=== PATIENT | female | born 1940 | race Caucasian/White ===

== ENCOUNTER 2024-02-21 13:17 | Day surgery (SDC) | payer MEDICARE, SELFPAY ==
[2024-02-14 13:54] VITALS: BMI 40.6
[2024-02-21] VITALS (13 sets, daily range): BP systolic 106–164; BP diastolic 45–96; PULSE 60–80; RESP 10–22; TEMP 36–36.5; O2SAT 90–98; BMI 42.0
--- NOTE | 2024-02-21 06:00 | DI.RAD.S_ITS ---
PROCEDURE: XR SHOULDER RT 1V INDICATIONS: TSA TECHNIQUE: 1 views of the shoulder were acquired. COMPARISON: None. FINDINGS: Bones: Right shoulder arthroplasty placement, with normal alignment. Soft tissues: No suspicious soft tissue calcifications. Subcutaneous gas and swelling, as expected. IMPRESSION: Well-aligned, intact right shoulder arthroplasty without hardware complication. Dictated by: Hussein Marinelli M.D. on 02/22/2024 at 9:14 Approved by: Hussein Marinelli M.D. on 02/22/2024 at 9:15
[2024-02-21] MEDS: LACTATED RINGERS 1,000 ML 42 ML IV ×2 (13:45→17:13)
[2024-02-21] MEDS: ACETAMINOPHEN 325 MG TABLET 975 MG PO (13:54)
--- NOTE | 2024-02-21 14:51 | PM.HP.1 ---
History of Present Illness History of Present Illness Date Patient Seen: 02/21/24 Time Patient Seen: 14:52 Chief complaint: Right Total Shoulder Arthroplasty - Reverse Narrative: Patient is a pleasant 83-year-old female here today for right reverse total shoulder arthroplasty. She has not had any changes in her symptoms since I last saw her. She states that the pain is still quite significant and prevents her from sleeping or doing activities of daily living. No recent nausea, vomiting, diarrhea, fevers, chills or any other constitutional symptoms. No other complaints at this time. [facility] Medical History History of COVID-19 (~2021) History of esophageal dilatation Hearing impaired Anxiety ADHD Pre-diabetes RODRIGO treated with BiPAP Chronic kidney disease, stage 3b SAH (subarachnoid hemorrhage) (10/24/23) Seasonal allergies HLD (hyperlipidemia) HTN (hypertension) Heart murmur Arrhythmia Acid reflux COPD (chronic obstructive pulmonary disease) Atrial fibrillation Aortic stenosis Nonsustained supraventricular tachycardia Pulmonary emboli (2014) History of transcatheter aortic valve replacement (TAVR) (2019) Surgical History History of open heart surgery (2019) History of arthroscopy of right shoulder History of total left knee replacement History of total right knee replacement Hx of bilateral cataract extraction Hx of tonsillectomy History of esophagogastroduodenoscopy (EGD) Hx of colonoscopy Hx of colectomy Hx of cholecystectomy Hx of appendectomy Hx of adenoidectomy Social History household members: significant other Smoking Status: Never smoker alcohol intake: former Meds Home Medications and Allergies Home Medications Medication Instructions Recorded Confirmed Type albuterol sulfate 90 mcg/actuation 2 puff inhalation Q4-6H PRN 01/18/24 02/21/24 History aerosol inhaler Shortness Of Breath alendronate 70 mg tablet 70 mg PO QWEEK 01/18/24 02/21/24 History aspirin 81 mg tablet,delayed 81 mg PO DAILY 01/18/24 02/21/24 History release azelastine 137 mcg (0.1 %) nasal 1 spray intranasal BID 01/18/24 02/21/24 History spray aerosol cetirizine 10 mg tablet 10 mg PO DAILY 01/18/24 02/21/24 History docusate sodium 100 mg capsule 100 mg PO DAILY 01/18/24 02/21/24 History (Colace) fluticasone 250 mcg-salmeterol 50 1 inh inhalation BID PRN Seasonal 01/18/24 02/21/24 History mcg/dose blistr powdr for allergies inhalation (Advair Diskus) furosemide 40 mg tablet 40 mg PO QAM 01/18/24 02/21/24 History hydrocodone 7.5 mg-acetaminophen 1 tab PO TID 01/18/24 02/21/24 History 325 mg tablet lisinopril 10 mg tablet 10 mg PO BEDTIME 01/18/24 02/21/24 History metoprolol tartrate 50 mg tablet 50 mg PO BID 01/18/24 02/21/24 History montelukast 10 mg tablet 10 mg PO BEDTIME 01/18/24 02/21/24 History oxybutynin chloride 5 mg tablet 5 mg PO BEDTIME 01/18/24 02/21/24 History pantoprazole 20 mg tablet,delayed 20 mg PO DAILY 01/18/24 02/21/24 History release (Protonix) pramipexole 0.125 mg tablet 0.125 mg PO BEDTIME 01/18/24 02/21/24 History rosuvastatin 10 mg tablet 10 mg PO BEDTIME 01/18/24 02/21/24 History trazodone 100 mg tablet 100 mg PO BEDTIME 01/18/24 02/21/24 History venlafaxine 150 mg 150 mg PO QAM 01/18/24 02/21/24 History capsule,extended release 24 hr Allergies Allergy/AdvReac Type Severity Reaction Status Date / Time adhesive tape Allergy Intermediate Blister Verified 02/21/24 13:47 citalopram Allergy Hives, Verified 02/21/24 13:47 vomiting diclofenac Allergy Affected Verified 02/21/24 13:47 kidneys doxycycline Allergy ITCHING Verified 02/21/24 13:47 Sulfa (Sulfonamide Allergy ITCHING Verified 02/21/24 13:47 Antibiotics) hydromorphone [From Dilaudid] AdvReac Severe Hallucinati Verified 02/21/24 13:47 ng celecoxib AdvReac Affected Verified 02/21/24 13:47 kidneys niacin AdvReac I got too Verified 02/21/24 13:47 hot piroxicam AdvReac Hypertensio Verified 02/21/24 13:47 n Review of Systems Review of Systems ROS: Yes All systems reviewed with the patient and are negative except as otherwise documented Exam Vital Signs (past 8 hours): - 02/21/24 13:57 Temperature 97.7 F Pulse Rate 60 Respiratory Rate 18 Blood Pressure 164/67 H Pulse Oximetry 96 Oxygen Delivery Method Room Air Oxygen Delivery Method Room Air Narrative Exam Narrative: HEENT: Head atraumatic eyes anicteric moist mucous membranes Cardiovascular: Palpable peripheral pulses extremities are warm and well perfused Respiratory: Breathing comfortably on room air Psychiatric: Appropriate mood and affect Neuro: No acute deficits Musculoskeletal: Limited range of motion of the right upper extremity as noted in the previous clinic note. Sensation intact to light touch median, radial, ulnar, axillary nerve distributions. Assessment & Plan Assessment & Plan narrative: Assessment: 83-year-old female with right rotator cuff arthropathy here for reverse total shoulder arthroplasty Plan: As discussed previously plan is to go forward with a reverse total shoulder arthroplasty. Risks and benefits of surgery were discussed again including the risk of infection, damage to internal structures, bleeding, nerve injury, instability, need for revision surgery, blood clots, anesthesia and . No guarantees were made regarding outcomes. Patient expressed understanding and accepted these risks and wished to go forward with surgery and consent was signed.
--- NOTE | 2024-02-21 15:12 | SUR.OPER ---
Beach chair with SKYTRON shoulder positioner. Lower body on padded OR bed. Head in foam padded head cradle, secured with straps. Non-operative arm secured <90 degrees abduction. Pillow under knees. Safety belt at thigh. Cloth tape over blanket over lower legs.
[2024-02-21] MEDS: CEFAZOLIN 2 GM/100 ML PREMIX 100 ML IV (16:00)
[2024-02-21] MEDS: BUPIVACAINE 0.25% (PF) 30 ML, EPINEPHrine 0.15 MG INJ (16:06)
--- NOTE | 2024-02-21 18:03 | PM.OP.1 ---
Operative Date/Time/Diagnoses Date of procedure: 02/21/24 Time of procedure: 18:03 Pre-op diagnosis: Right glenohumeral arthritis Post-op diagnosis: same Procedure & Clinicians Procedure: Right reverse total shoulder arthroplasty Same procedure as scheduled: Yes Indications: Indications: This is a 83-year-old female who has glenohumeral arthritis. Symptoms have been present for years, insidious onset. Patient has failed a reasonable attempt at conservative therapy. After extensive discussion in clinic, they wished to go forward with surgery. Risks and benefits were described including the risk of infection, bleeding, damage to internal structures including nerves. We also discussed the risk of failure of surgery and the need for revision surgery as well as the risk of anesthesia. The patient expressed understanding with these risks and wished to go forward with surgery. Surgeon: Reji Inman Carbon Brushes Assembler: Loli Gaines Operative Notes Findings: Findings: Osteoarthritis of the glenoid and humeral head as well as a defient rotator cuff as noted on preoperative imaging and under direct visualization Closure Type: primary Specimen(s): none sent Prosthetic devices, grafts, tissues, transplants, or devices: Tornier implants Base plate: standard 25 mm, Glenosphere: 33 mm (+3 offset) Stem: Perform 2+ Poly: +0 concentric Estimated Blood Loss (mL): 200 Procedure in detail: Patient was seen in the preoperative holding unit. The correct right shoulder was identified and marked with my initials. Again we discussed the risks and benefits of surgery and they wished to go forward with surgery. The patient was brought back to the operating room and placed supine on the operating table. Smooth endotracheal intubation was performed by anesthesia. All prominences were padded and they were placed into the beach chair position. Intravenous antibiotics were given. The right shoulder was then prepped with the standard sterile preparation and draping. A time-out was then performed in my initials were again identified on the correct shoulder. 1 g of IV tranexamic acid was given. A standard deltopectoral incision was made. Skin flaps were made. The cephalic vein was identified and retracted laterally. This was protected throughout the remainder of the case. Sharp dissection was made along the deltoid, subacromial and subcoracoid space to release adhesions. The conjoined tendon was identified and the axillary nerve was palpated and continuous using the tug test. It was protected throughout the remainder of the case. A brown retractor was placed underneath the deltoid muscle and a darach retractor underneath the conjoint tendon. The subscapularis muscle was ntoed to be intact but thin. The anterior circumflex artery and associated veins on the lower border of the subscapularis were identified and tied off using 0-Vicryl. The biceps tendon was identified in the bicipital groove. This was released from its sheath, and taken from its origin on the glenoid and tied into the pectoralis tendon for a solid tenodesis. We then began a subscapularis peel. The subscapularis was tagged with an Ethibond suture. A 360 degree circumferential release of the subscapularis was performed with protection of the axillary nerve. The coracohumeral ligament was released at the base of the coracoid. The shoulder was then dislocated. Osteophytes were removed using combination of rongeur and osteotome. The rotator cuff was noted to be partially insufficient. An intramedullary guide was used set at version of 20?. Using an oscillating saw a conservative humeral head cut was made. Impaction reamers were reamed up to a size 2 stem with a built-in angle 135?. A neck protector was placed. Attention was then turned to the glenoid. After retracting the humeral head posteriorly a circumferential release was performed of the capsule with protection of the axillary nerve. The labrum was then released starting at the biceps anchor and going around the rim a small amount of triceps was released from the inferior glenoid. A center guide pin was then placed using the guide, followed by Reamer. After adequate cartilage was removed the boss was reamed and the centeral hole was drilled and measured. The base plate was then implanted and screwed into place. The peripheral screws were then sequentially drilled, measured, and placed. A 33 glenosphere was then selected and screwed into place onto the base plate. Turning back to the humerus, the humeral head was delivered and trialed with a 0 concentric. The arm was taken through range of motion and this was felt to be stable. The trial was then removed and a dilute Betadine wash was then performed with 1 L of sterile saline. Before placing the final implant, drill holes were made in the bicipital groove for the subscapularis repair, and sutures were passed through the drill holes. The final stem was then impacted into the humerus. The shoulder was then reduced and again brought through range of motion and was felt to be stable. The subscapularis was then repaired using a modified racking hitch with nice loupes. The deltopectoral interval was then closed with #2 Ethibond. The skin was closed with 2-0 vicryl and 3-0 Monocryl followed by Aquacel dressing. Patient was awoken from anesthesia and brought back to the postoperative recovery unit without issue. They were placed into a sling. Assisting participation: This operation could not have been safely performed (without compromising the technical results or length of the procedure) without the assistance of a skilled hand frame surgical elastic knitter. The hand frame surgical elastic knitter was medically necessary for proper positioning, retraction and manipulation of instruments, proper exposure, graft prep, and manipulation of tissue. Complications: none Post-operative Condition: stable Disposition: PACU Plan for aftercare: Postoperative instructions: Sling to remain on for 6 weeks. No external rotation past neutral for 6 weeks. Okay for the sling to come off for shower. Okay to shower over the Aquacel dressing. If any water gets underneath the dressing, remove the dressing. First postoperative visit in 2 weeks.
[2024-02-21] MEDS: ACETAMINOPHEN 325 MG TABLET 650 MG PO (19:48)
[2024-02-21] MEDS: MORPHINE 2 MG/ML INJ IV ×2 (19:49→23:43)
[2024-02-21] MEDS: MONTELUKAST 10 MG TABLET PO (20:05)
[2024-02-21] MEDS: METOPROLOL IR 50 MG TABLET PO (20:05)
[2024-02-21] MEDS: PRAMIPEXOLE 0.25 MG TABLET 0.125 MG PO (20:05)
[2024-02-21] MEDS: ATORVASTATIN 20 MG TABLET PO (20:05)
[2024-02-21] MEDS: DOCUSATE 100 MG CAPSULE PO (20:05)
[2024-02-21] MEDS: SENNOSIDES 8.6 MG TABLET 17.2 MG PO (20:06)
[2024-02-21] MEDS: CEFAZOLIN VIAL 1 GM in SODIUM CHLORIDE 0.9% 100 ML IV (23:42)
[2024-02-22] MEDS: ACETAMINOPHEN 325 MG TABLET 650 MG PO ×2 (02:27→08:48)
[2024-02-22] MEDS: MORPHINE 2 MG/ML INJ IV ×2 (03:47→08:16)
[2024-02-22 03:50] VITALS: BP 125/53; PULSE 74; RESP 19; TEMP 36.9; O2SAT 95
[2024-02-22 05:06] LABS: Hematocrit 31.2 % (36-46); Hemoglobin 10.5 g/dL (12.0-16.0); Mean Corpuscular HGB Conc 33.7 % (30-36); Mean Corpuscular Volume 92.1 fL (80-100); Platelet Count 125 X10^3/uL (150-400); Red Blood Cell Count 3.39 X10^6/uL (4.0-5.2); Red Cell Distribution Width 14.1 % (11.6-14.8)
[2024-02-22] MEDS: PANTOPRAZOLE DR 20 MG TABLET PO (06:02)
--- NOTE | 2024-02-22 07:12 | P.DS_ITS ---
History of Present Illness History of Present Illness Date Patient Seen: 02/22/24 Time Patient Seen: 07:13 Chief complaint: Right Total Shoulder Arthroplasty - Reverse Narrative: Date of procedure: 02/21/24 Time of procedure: 18:03 Pre-op diagnosis: Right glenohumeral arthritis Post-op diagnosis: same Procedure & Clinicians Procedure: Right reverse total shoulder arthroplasty Same procedure as scheduled: Yes Indications: Indications: This is a 83-year-old female who has glenohumeral arthritis. Symptoms have been present for years, insidious onset. Patient has failed a reasonable attempt at conservative therapy. After extensive discussion in clinic, they wished to go forward with surgery. Risks and benefits were described including the risk of infection, bleeding, damage to internal structures including nerves. We also discussed the risk of failure of surgery and the need for revision surgery as well as the risk of anesthesia. The patient expressed understanding with these risks and wished to go forward with surgery. Surgeon: Reji Inman [employer] Glassware Replacer: Loli Gaines Operative Notes Findings: Findings: Osteoarthritis of the glenoid and humeral head as well as a defient rotator cuff as noted on preoperative imaging and under direct visualization Closure Type: primary Specimen(s): none sent Prosthetic devices, grafts, tissues, transplants, or devices: Tornier implants Base plate: standard 25 mm, Glenosphere: 33 mm (+3 offset) Stem: Perform 2+ Poly: +0 concentric Estimated Blood Loss (mL): 200 Discharge Providers Provider Date of admission: 02/22/2024 Discharge Date: 02/22/24 Primary care physician: Alethea Hernandez MD Consults: 01/18/24 11:56 Consult to Anesthesiology Routine Comment: Consulting Provider: Anesthesiologist Reason for consultation: PAC courtesy re: Comorbidities 01/18/24 12:10 Consult to Anesthesiology Routine Comment: Consulting Provider: Anesthesiologist Reason for consultation: PAC courtesy re: Comorbidities 02/21/24 06:00 Consult to Anesthesiology Routine Comment: Consulting Provider: Anesthesiologist Reason for consultation: Regional block for post operative pain control 02/21/24 17:40 Consult to Discharge Planning Routine Comment: Consult to Physical Therapy Evaluate & Treat Comment: Physician Instructions: Evaluate and Treat Discharge provider: Umer Cruz PA-C Summary Hospital Course Discharge Diagnosis: Status post right reverse total shoulder arthroplasty Hospital Course: Multi-modal pain control. Status at Discharge Cognitive/behavioral status at discharge: oriented Functional status at discharge: independent ambulation Time Spent with Patient Time spent: Less than 30 minutes Exam Vital Signs (past 8 hours): - 02/22/24 03:50 Temperature 98.4 F Pulse Rate 74 Respiratory Rate 19 Blood Pressure 125/53 L Pulse Oximetry 95 Oxygen Flow Rate 0 Fraction of Inspired Oxygen 28 SaO2/FiO2 Ratio 342 Oxygen Delivery Method Nasal Cannula Oxygen Flow Rate 0 Narrative Exam Narrative: Patient is found lying uncomfortably in bed. She states oral pain medications have not been helping her. She still plans on going home today. ARC 2.0 does not appear to be probably applied. Dressing is clean and intact. Able to flex and extend all 5 digits. Index finger is able to lateralize. Sensation intact. Resp Effort & Inspection: normal respiratory effort and able to speak in complete sentences Objective Labs 02/22/24 04:45 Labs: Laboratory Results - last 24 hr 02/22/24 04:45 WBC 7.0 RBC 3.39 L Hgb 10.5 L Hct 31.2 L MCV 92.1 MCH 31.0 MCHC 33.7 RDW 14.1 Plt Count 125 L [facility] Medical History History of COVID-19 (~2021) History of esophageal dilatation Hearing impaired Anxiety ADHD Pre-diabetes RODRIGO treated with BiPAP Chronic kidney disease, stage 3b SAH (subarachnoid hemorrhage) (10/24/23) Seasonal allergies HLD (hyperlipidemia) HTN (hypertension) Heart murmur Arrhythmia Acid reflux COPD (chronic obstructive pulmonary disease) Atrial fibrillation Aortic stenosis Nonsustained supraventricular tachycardia Pulmonary emboli (2014) History of transcatheter aortic valve replacement (TAVR) (2019) Surgical History History of open heart surgery (2019) History of arthroscopy of right shoulder History of total left knee replacement History of total right knee replacement Hx of bilateral cataract extraction Hx of tonsillectomy History of esophagogastroduodenoscopy (EGD) Hx of colonoscopy Hx of colectomy Hx of cholecystectomy Hx of appendectomy Hx of adenoidectomy Social History household members: significant other Smoking Status: Never smoker alcohol intake: former Discharge Assessment & Plan Assessment and Plan Assessment: Right reverse total shoulder arthroplasty Plan of Treatment: Plan to discharge home with family. Patient has already been received and instructed on how to take pre-operatively ibuprofen 600mg and ondansetron 4mg. Due to patient's outstanding pain, she is prescribed oxycodone 5mg q4hr prn #30. [address]. Hernandez since Guillaume is on a pain contract. Dr. Hernandez office notified us we are allowed to Rx the oxycodone and future pain relief prescriptions will be filled by them. ASA 81mg bid for 30 days for DVT prophylaxis. Start outpatient PT in 3-7 days. Keep arm immobilized until 2 week follow up with [facility] except for PT. Discharge Plan Discharge Plan Patient Disposition: Home Discharge orders & Medications Discharge Orders: Discharge (Order); Ordered 02/22/24 Ordered By: Umer Cruz Prescriptions: Continued furosemide 40 mg Tablet 40 mg PO QAM fluticasone propion-salmeterol [Advair Diskus] 250-50 mcg/dose Blister With Device 1 inh INHALATION BID PRN (Reason: Seasonal allergies) cetirizine 10 mg Tablet 10 mg PO DAILY alendronate 70 mg Tablet 70 mg PO QWEEK venlafaxine 150 mg Capsule,Extended Release 24hr 150 mg PO QAM pantoprazole [Protonix] 20 mg Tablet,Delayed Release (Dr/Ec) 20 mg PO DAILY trazodone 100 mg Tablet 100 mg PO BEDTIME hydrocodone-acetaminophen 7.5-325 mg Tablet 1 tab PO TID lisinopril 10 mg Tablet 10 mg PO BEDTIME metoprolol tartrate 50 mg Tablet 50 mg PO BID pramipexole 0.125 mg Tablet 0.125 mg PO BEDTIME docusate sodium [Colace] 100 mg Capsule 100 mg PO DAILY montelukast 10 mg Tablet 10 mg PO BEDTIME azelastine 137 mcg (0.1 %) Aerosol,Waite 1 spray INTRANASAL BID Rx Instructions: administer into each nostril albuterol sulfate 90 mcg/actuation Hfa Aerosol Inhaler 2 puff INHALATION Q4-6H PRN (Reason: Shortness Of Breath) oxybutynin chloride 5 mg Tablet 5 mg PO BEDTIME rosuvastatin 10 mg Tablet 10 mg PO BEDTIME Changed aspirin 81 mg Tablet,Delayed Release (Dr/Ec) 81 mg PO BID Qty: 60 0RF Follow up/Referrals: Alethea Hernandez MD [Primary Care Provider] - Diet/Activity/Treatments Diet: Diet as Tolerated Skin/Wound/Dressing Care Report to your healthcare provider any signs of infection, such as:: chills, fever, night sweats, unusual drainage and unusual redness Dressing: Aquacel dressing to remain on for 2 weeks. This will be removed in clinic as well as the underlying andre. Okay to shower with soap and water running over top of the dressing. NOTE: If water gets underneath the dressing, please remove the dressing and replace with clean dry 4x4s. Visit Report/Discharge Packet Instructions: DI for Shoulder Replacement Stand Alone Forms: Patient Portal/API, Surgery Discharge Discharge Data Primary Care Provider: Alethea Hernandez Attending Provider: Reji Inman
[2024-02-22 07:52] VITALS: BP 147/59; PULSE 76; RESP 18; TEMP 36.2; O2SAT 97
[2024-02-22] MEDS: CEFAZOLIN VIAL 1 GM in SODIUM CHLORIDE 0.9% 100 ML IV (08:04)
[2024-02-22] MEDS: LORATADINE 10 MG TABLET PO (08:45)
[2024-02-22] MEDS: VENLAFAXINE ER 75 MG CAP 150 MG PO (08:45)
[2024-02-22] MEDS: ASPIRIN EC 81 MG TABLET PO (08:45)
[2024-02-22] MEDS: DOCUSATE 100 MG CAPSULE PO (08:45)
[2024-02-22] MEDS: METOPROLOL IR 50 MG TABLET PO (08:45)
[2024-02-22] MEDS: OXYCODONE IR 5 MG TABLET PO ×2 (10:53→14:00)
--- NOTE | 2024-02-22 13:00 | PT.IPTN ---
Current Diagnoses Other specific arthropathies, not elsewhere classified, right shoulder (02/21/24) Surgery Performed Operation Date: 02/21/24 15:15 Actual Procedures p Total Shoulder Arthroplasty - Reverse with biceps tenodesis(Right) - Reji Inman MD Physical Therapy Treatment Note M3 PT-IP Subjective Start: 02/22/24 13:17 Freq: Status: Active Protocol: Document 02/22/24 13:18 TS (Rec: 02/22/24 13:29 TS [id number]) Subjective Physical Therapy Visit Type Type Treatment Note Visit Start Time 13:00 Visit Stop Time 13:16 Notes Family present Number of LEAD CASTER HELPER Visits 1 Physical Therapy Visit Comments Patient Comments Pt reports she will be sleeping in her lift recliner at home and someone will be available by phone at all times to assist. Pt is agreeable to PT. M4 PT-IP Mobility and Gait Start: 02/22/24 13:17 Freq: Status: Active Protocol: Document 02/22/24 13:18 TS (Rec: 02/22/24 13:29 TS [id number]) PT-Bed Mobility Assessment Supine to Sit Supine to Sit Standby Assistance Sit to Supine Sit to Supine Minimal Assistance Scooting Scooting to Edge of Bed Standby Assistance PT-Transfer Assessment Sit to and From Stand Sit to and from Stand Standby Assistance Equipment Transfer Assistive Device Straight Cane Orthotic/Prosthetic Devices or Brace: Yes Comments Mobility Comments Supine to sit HOB elevated 45D with single RUE support and use of bedrail. She performed STS SBA with SPC with no retorleaing or LOB. She ambulated in room ~50'SBA with SPC, had no buckling or LOB, ambulates with WBOS. Sit to supine into bed Darlene for LE's, pt uses momentum to swing legs into bed. Pt was left in bed, all needs met. Gait Assessment Gait Gait Assistance Required: Standby Assistance Distance (Feet) 50 Assistive Devices Assistive Device Straight Cane Orthotic/Prosthetic Devices or Brace: Yes Gait Deviations General Gait Pattern Wide Based Gait Factors Limiting Gait Function Factors Limiting Gait Function Poor Balance PT-Balance Assessment Sitting Balance and Reactions Static Sitting Balance Ability Good Dynamic Sitting Balance Ability Good Standing Balance and Reactions Static Standing Balance Ability Good Dynamic Standing Balance Ability Fair M6 PT-IP Treatment Start: 02/22/24 13:17 Freq: Status: Active Protocol: Document 02/22/24 13:18 TS (Rec: 02/22/24 13:29 TS [id number]) Physical Therapy Treatment Education Education Provided Precautions,Weight Bearing Status,Safety M7 PT-IP Assessment and Plan Start: 02/22/24 13:17 Freq: Status: Active Protocol: Document 02/22/24 13:18 TS (Rec: 02/22/24 13:29 TS [id number]) PT Summary Assessment and Plan Summary Progress Towards Goals Progressing Toward Goals Assessment Summary Guillaume is progressing well with her mobility. Sheis SBA/ Darlene for bed mobility. She required some Darlene for LE's into bed due to height of bed. She will be sleeping in a lift recliner at home. She ambulated ~50'SBA with use of SPC, she had no buckling or LOB. Pt has multiple family members who can check on her and will be available by phone . PT is recommending pt return home with 24/7 assist available and HHPT. Recommendations To Nursing Amount of Assist Needed 1 Person Assist Discharge Recommendations PT Discharge Recommendations Home with 24/7 Assist Available,Home Health Transportation Needs at Discharge Private Vehicle
--- NOTE | 2024-02-22 14:04 | CM.DANOTE ---
Initial DCP Assessment Note Pt is a 83 yo female, resident of [place], now POD#1 from Rt total shoulder surgery by Dr Inman PCP: Alethea Hernandez Payer: MCR/GERARDOP Reviewed chart, pt discussed in multidisciplinary rounds this morning. Therapy has cleared pt for return home w/family to assist and pt has planned for home, DC order from Ortho has already been initiated this morning. Met w/patient and her family to introduce self and role. Patient is typically indp at her baseline, drives, and care for her spouse Akira. Daughter Donovan will be helping patient and is looking into caregiver support for patient and her spouse. Provided Senior Resource Guide and printed material from [facility]. Discussed home health and patient/family agreeable. No agency preference. GINETTE Mora kindly agreed to make HH referral to [facility] for RN/PT/OT/IMPLEMENTATION ANALYST based on soonest availability. F2F and HH order completed, sent to Kevin at [facility] who has accepted patient onto service. Plan: Discharge home w/family, [facility], cg resources via family to transport. Cleared by therapies for this plan. CRUZ Cardona Discharge Planning/Care Management CM Discharge Assessment Start: 02/22/24 13:41 Freq: Status: Active Protocol: Document 02/22/24 13:41 BETHEL (Rec: 02/22/24 14:04 BETHEL [id number]) Discharge Planning Assessment Assigned Quality Assurance CRUZ Daniel DPOA/Assigned Designee Name abdulaziz Fernandez Contact Information [phone] Advance Directives? Yes Advance Directives on File No History Provided By Patient,Medical Record Prior Living Arrangements House Household Members significant other Type of transporation used prior to Drives own vehicle admit Independent with ADL's Yes Is patient alert and oriented? Yes Caregiver for Another Yes: Cares for spouse Akira Patient/Family Preference Home with Home Health Barriers to Discharge No Discharge Plan Home with Home Health Transportation Arrangement Family Referrals Initiated Home Health Additional Comment [facility] If patient plan is home with home health Yes : Has signed face to face form been completed? Medicare Choice List Provided Yes SNF/HH Preference No preference Has Agency SNF been contacted Yes
--- NOTE | 2024-02-22 14:16 | PC.NURSE ---
Day shift: Paperwork signed and all questions answered. Family in room for teachings (2 adults). Pain better with the 5mg PO oxycodone today. CMS ok. No nausea. Left unit at approx 1415. Has all personal belongings. MD scripts are waiting at pharmacy (per patient).
== END 2024-02-22 14:18 | disposition home or self-care (01) ==
LOC: OR 13:25 → AC 18:23
PROVIDERS: PCP Student in an Organized Health Care Education/Training Program; Referring Provider Orthopaedic Surgery; Visit Provider Orthopaedic Surgery
PROC: (CPT 23472; principal; 2024-02-21 15:15)
DX: M19.011 Primary osteoarthritis, right shoulder (principal)
CPT/HCPCS: 23472; 36415; 73020; 85027; 97110; 97116; 97530; C1776; J0171; J0690; J1100; J2270; J2405; J2704; J3010